=== PATIENT | female | born 1960 | race Caucasian/White ===

== ENCOUNTER 2021-04-21 10:48 | Outpatient (REF) | payer MEDICARE, MEDICAID, SELFPAY ==
--- NOTE | ~2021-04-21 | MM_ITS ---
EXAMINATION: BONE DENSITOMETRY CLINICAL INDICATION: Asymptomatic menopausal state. COMPARISON: This is the patient's baseline examination. TECHNIQUE: Using a [employer] DXA System (software version: 13.1) manufactured by [employer], dual-energy x-ray absorptiometry was performed of the lumbar spine and left hip. The images are of good technical quality. Summary results are attached. FINDINGS: AP SPINE L1-L4: BMD 1.214 g/cm2, Z-score 0.3, T-score 0.3, normal. LEFT FEMUR, NECK: BMD 1.050 g/cm2, Z-score 0.6, T-score 0.1, normal. LEFT FEMUR, TOTAL: BMD 1.124 g/cm2, Z-score 1.0, T-score 0.9, normal. IDENTIFIED RISK FACTORS: Menopause. HISTORY OF FRACTURE: None listed. MEDICATIONS: Calcium supplements or multivitamin, vitamin D, ERT/SERMS. MM/XR DEXA axial skeleton IMPRESSION: 1. DIAGNOSIS: Normal bone density based on the lowest T-score value of 0.1 in the femoral neck applying World Health Organization criteria. 2. 10-YEAR FRACTURE RISK PREDICTION, FRAX: Major osteoporotic fracture (clinical spine, forearm, hip or shoulder) 5.4%. Hip fracture 0.1%. 3. Treatment Recommendations: NOF guidelines recommend consideration for treatment in postmenopausal women and men age 50 and older presenting with the following: -A hip or vertebral (clinical or morphometric) fracture. -T-score less than or equal to -2.5 at the femoral neck or spine after appropriate evaluation to exclude secondary causes. -Low bone mass at the hip or spine and a 10-year fracture probability by FRAX of greater than or equal to 3% for hip fracture or greater than or equal to 20% for major osteoporotic fracture based on the [place] adapted WHO algorithm. 4. Other Recommendations: All treatment decisions require clinical judgment and consideration of individual patient factors, including patient preferences, comorbidities, previous drug use, risk factors not captured in the FRAX model (e.g. frailty, falls, vitamin D deficiency, increased bone turnover, interval significant decline in bone density) and possible under or overestimation of fracture risk by FRAX. FUTURE SCAN RECOMMENDATION: People with diagnosed cases of osteoporosis or at high risk for fracture should have regular bone mineral density tests. For patients eligible for Medicare, routine testing is allowed once every 2 years. The testing frequency can be increased to one year for patients who have rapidly progressing disease, those who are receiving or discontinuing medical therapy to restore bone mass, or have additional risk factors.
== END 2021-04-21 10:49 | disposition home or self-care (01) ==
LOC: HO.MAMMO 10:48
PROVIDERS: PCP Nurse Practitioner Family; Visit Provider Nurse Practitioner Family
DX: Z13.820 Encounter for screening for osteoporosis (principal); Z78.0 Asymptomatic menopausal state; Z79.899 Other long term (current) drug therapy
CPT/HCPCS: 77080

== ENCOUNTER 2023-01-11 10:12 | Outpatient (REF) | payer MEDICARE, MEDICAID, SELFPAY ==
[2023-01-11 11:09] LABS: MANUAL DIFF FLAG NO
[2023-01-11 11:25] LABS: Appearance Urine Clear; Color Urine Yellow; Glucose Urine UA >=1000 mg/dL (Negative); Leukocyte Esterase Urine Trace (Negative); Nitrite Urine Negative (Negative); PH 5.5 (5.0-9.0); UMIC TRIGGER UACC YES; Urine Blood Negative (Negative); Urine Ketones Negative (Negative); Urine Protein Negative (Neg-Trace)
[2023-01-11 11:27] LABS: Basophils Percent Auto 0.6 % (0-2); Eosinophils Absolute Auto 0.3 X10*3/uL (0.0-0.4); Eosinophils Percent Auto 7.2 % (0-4); Hematocrit 40.7 % (37.0-47.0); Hemoglobin 13.3 g/dl (12.0-16.0); Imm Gran Abs Auto 0.02 X10*3/uL (0.00-0.03); Imm Gran Pct Auto 0.4 % (0.0-0.4); Lymphocytes Absolute Auto 1.5 X10*3/uL (1.2-4.9); Lymphocytes Percent Auto 31.4 % (20-40); Mean Corpuscular HGB Conc 32.7 g/dl (31.0-35.0); Mean Corpuscular Hemoglobin 29.7 pg (27.0-33.0); Mean Corpuscular Volume 90.8 fL (80.0-98.0); Mean Platelet Volume 8.9 fL (9.4-12.3); Monocytes Absolute Auto 0.3 X10*3/uL (0.1-1.2); Monocytes Percent Auto 6.6 % (2-11); Neutrophils Absolute Auto 2.5 x10*3/uL (2.0-8.3); Neutrophils Percent Auto 53.8 % (45-73); Platelet Count 291 X10*3/uL (160-400); Red Blood Count 4.48 X10*6/uL (4.20-5.50); Red Cell Distribution Width 13.7 % (11.0-16.0); White Blood Count 4.7 X10*3/uL (4.8-10.8)
[2023-01-11 11:34] LABS: Bacteria Urine None Seen (None Seen); Hyaline Casts Urine 0-2 /LPF (0-2); RBC Urine 0-2 /HPF (0-2); Squamous Epithelial Cell Urine 0-2 /HPF (0-2); WBC Urine 0-5 /HPF (0-5)
[2023-01-11 12:56] LABS: Alanine Aminotransferase 18 U/L (0-31); Albumin Level 4.1 g/dL (3.5-5.0); Alkaline Phosphatase 87 U/L (39-117); Anion Gap 15 (12-20); Aspartate Amino Transferase 13 U/L (5-31); Bilirubin Total 0.6 mg/dL (0.0-1.0); Blood Urea Nitrogen 15 mg/dL (9-16); Calcium 9.9 mg/dL (8.4-10.2); Carbon Dioxide 25 mmol/L (22-29); Chloride 104 mmol/L (96-108); Cholesterol 148 mg/dL; Estimated Glomerular Filt Rate 57; Glucose Fasting 155 mg/dL (60-99); HDL Cholesterol 51 mg/dL; LDL Cholesterol Calculated 78 mg/dl; Potassium 4.4 mmol/L (3.3-5.1); Sodium 140 mmol/L (135-145); Total Protein 7.3 g/dL (6.5-8.0); Triglycerides 95 mg/dL
[2023-01-11 13:00] LABS: TSH reflex Free T4 1.22 uIU/mL (0.32-4.0)
== END 2023-01-11 10:13 | disposition home or self-care (01) ==
LOC: HO.HMGCLDS 10:12
PROVIDERS: PCP Nurse Practitioner Family; Visit Provider Nurse Practitioner Family
DX: E11.9 Type 2 diabetes mellitus without complications (principal); N12 Tubulo-interstitial nephritis, not specified as acute or chronic
CPT/HCPCS: 36415; 80053; 80061; 81001; 82043; 83036; 84443; 85025

== ENCOUNTER 2023-04-20 13:43 | Outpatient (AMB) | payer MEDICARE, MEDICAID, SELFPAY ==
--- NOTE | 2023-04-20 13:57 | A.OFFPC_ITS ---
Vital Signs 04/20/23 13:58 Height 5 ft 9.5 in Weight 241 lb BMI 35.1 BP 118/64 Blood Pressure Location Rt brachial Position Sitting Pulse 90 Pulse Source Pulse Oximeter Pulse Oximetry (%) 99 Oxygen Delivery Method Room Air Intake Visit Reasons: 2 1/2 month follow up newly DM Allergies penicillin V Allergy (Unknown, Verified 04/20/23 14:01) swelling Penicillins [PENICILLINS] Allergy (Unknown, Unverified 04/20/23 14:01) SWELLING From NOVOCAIN Allergy (Unknown, Uncoded 04/20/23 14:01) SWELLING Novocain Allergy (Unknown, Uncoded 04/20/23 14:01) swelling Medication List - Last Reconciled 04/20/23 by BETHANY Cid-NILAY ascorbic acid (vitamin C) PO .once a day; 90 days atorvastatin 10 mg PO DAILY 90 days blood sugar diagnostic (FreeStyle Lite Strips) 1 strip miscellaneous DAILY blood-glucose meter (FreeStyle Lite Meter kit) As directed flu vacc [id number](65yr up)-PF 0.7 mL IM ONCE 99 days lancets (FreeStyle Lancets) 1 gauge topical DAILY 30 days lisinopril 5 mg PO DAILY metformin 1,000 mg PO BID OneTouch Ultra Test (blood sugar diagnostic) TID testing NS OneTouch Ultra2 Meter (blood-glucose meter) TID testing NS OneTouch UltraSoft 2 Lancet (lancets) TID testing NS Shower Chair daily shower use tirzepatide (Mounjaro) 2.5 mg subcut QWEEK trazodone 150 mg PO BEDTIME Tobacco use date assessed: 04/20/23 Dental Screening Dental Screen Date: 04/20/23 Did you have a dental visit in the last 12 months?: Yes Did you have a dental problem in the last 6 months where you did not have access to dental care?: No Was dental information given to patient?: Patient has dentist HPI 2 1/2 month follow up newly DM HPI Details Pt is a diabetic, on an DEMETRIS and a statin. Last A1C was 6.8, microalbumin is up to date. Denies polyuria, polydipsia, and neuropathy. Pt denies any signs and symptoms of hypoglycemia and does know how to correct it. HTN: Blood pressure is stable, managed with lisinopril 5mg. Denies chest pain, shortness of breath, headache, dizziness, and blurred vision. Pt sees endo. She is working on her diet and has lost 68 pounds. reports feeling great [facility] Medical History (Updated 12/25/22 @ 10:20 by LYLA Cid) Obstruction of ureteropelvic junction (UPJ) due to stone Pyelonephritis Social History Housing: House Patient Tobacco Use Status: Never used Tobacco e-Cigarette/Vaping Use: Never Used Second Hand Smoke Exposure: No Current occupational status: disabled Cognitive needs: No Hearing needs: No Vision needs: No Review of Systems Const Reports as per HPI Physical exam (Primary Care) Vital Signs: Last Vital Signs Pulse 90 04/20/23 13:58 BP 118/64 04/20/23 13:58 Pulse Ox 99 04/20/23 13:58 Oxygen Delivery Method Room Air 04/20/23 13:58 BMI result Body Mass Index 35.1 Tobacco/Smoking Status: Tobacco use Status Tobacco use date assessed 04/20/23 04/20/23 14:07 Patient Tobacco Use Status Never used Tobacco 04/20/23 13:58 e-Cigarette/Vaping Use Never Used 04/20/23 13:58 Const General: cooperative Nutritional Appearance: obese Orientation/consciousness: patient oriented x3 Resp Effort & Inspection: normal respiratory effort Auscultation: clear to auscultation bilaterally Cardio Rate: regular rate Rhythm: regular rhythm Heart sounds: S1 normal heart sound present and S2 normal heart sound present Neuro General: patient oriented x3 Extrem Other: bilat feet: + sensation with use of monofilament, feet intact without lesions Psych Appearance: grossly normal Mental Status: mental status grossly normal Speech and movement: Normal speech and movement present Affect: normal affect Attitude: cooperative Thought process: Normal thought process present Thought content: Normal thought content present Insight: Good insight present (Psych) Judgement: Good judgement present (Psych) Assessment and Plan Assessment & Plan (1) HTN (hypertension): Code(s): I10 - Essential (primary) hypertension (2) Diabetes: Code(s): E11.9 - Type 2 diabetes mellitus without complications Plan The patient agreed to the use of a medical research scientist for this encounter. Scribed for LYLA Cali by Swetha Kyle, medical research scientist, on 04/20/2023 at 14:15 EST Medications: Changed From trazodone 100 mg PO BEDTIME 90 days 90 tabs 2RF To trazodone 150 mg PO BEDTIME Coding Level of Care Code Est Pt Level 3 (74330) Diagnoses HTN (hypertension) I10 Diabetes E11.9
[2023-04-20 13:58] VITALS: BP 118/64; PULSE 90; O2SAT 99; BMI 35.1
== END 2023-04-20 14:41 | disposition home or self-care (01) ==
PROVIDERS: PCP Nurse Practitioner Family; Visit Provider Nurse Practitioner Family
DX: I10 Essential (primary) hypertension (principal); E11.9 Type 2 diabetes mellitus without complications
CPT/HCPCS: 99213

== ENCOUNTER 2023-10-24 15:33 | Outpatient (AMB) | payer MEDICARE, MEDICAID, SELFPAY ==
--- NOTE | 2023-10-24 15:39 | MHC.PC.OV ---
Vital Signs 10/24/23 15:44 Height 5 ft 9.5 in Weight 223 lb BMI 32.5 BP 108/62 Blood Pressure Location Rt brachial Position Sitting Pulse 78 Pulse Source Pulse Oximeter Pulse Oximetry (%) 98 Oxygen Delivery Method Room Air Intake Visit Reasons: Annual Physical Intake Note: Patient here for physical exam. pt has f/u appt with Endo in 2 weeks. Mammo: 2022 Pap: 2023 due back in 2yrs. Bone dens: 2020 Allergies penicillin V Allergy (Unknown, Verified 10/24/23 15:46) swelling Penicillins [PENICILLINS] Allergy (Unknown, Unverified 10/24/23 15:46) SWELLING From NOVOCAIN Allergy (Unknown, Uncoded 10/24/23 15:46) SWELLING Novocain Allergy (Unknown, Uncoded 10/24/23 15:46) swelling Medication List - Last Reconciled 10/24/23 by Duke Rey, [employer] ascorbic acid (vitamin C) PO .once a day; 90 days atorvastatin 10 mg PO DAILY 90 days blood sugar diagnostic (FreeStyle Lite Strips) 1 strip miscellaneous DAILY blood-glucose meter (FreeStyle Lite Meter kit) As directed flu vacc [id number](65yr up)-PF 0.7 mL IM ONCE 99 days lancets (FreeStyle Lancets) 1 gauge topical DAILY 30 days lisinopril 5 mg PO DAILY metformin 1,000 mg PO BID OneTouch Ultra Test (blood sugar diagnostic) TID testing NS OneTouch Ultra2 Meter (blood-glucose meter) TID testing NS OneTouch UltraSoft 2 Lancet (lancets) TID testing NS Shower Chair daily shower use tirzepatide (Mounjaro) 5 mg subcut QWEEK trazodone 100 mg PO BEDTIME PRN Tobacco use date assessed: 10/24/23 Dental Screening Dental Screen Date: 10/24/23 Did you have a dental visit in the last 12 months?: Yes Did you have a dental problem in the last 6 months where you did not have access to dental care?: No Was dental information given to patient?: Patient has dentist HPI Annual Physical HPI Details Pt is here for a PE. Will order labs. 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 Mammo is up to date. Colon screen is up to date. Pt is a diabetic, sees endo. Pt c/o increased insomnia. She is currently taking trazodone 100mg. Will increase this to 150mg. Pt has a papular lesion to her right cheondoism. Will refer to derm. [facility] Medical History (Updated 10/24/23 @ 16:24 by Duke Rey, [facility]) Obstruction of ureteropelvic junction (UPJ) due to stone Pyelonephritis Surgical History (Updated 10/24/23 @ 15:49 by Zuleyka Keen, [facility]) Hx of left knee surgery Social History Housing: House Patient Tobacco Use Status: Never used Tobacco e-Cigarette/Vaping Use: Never Used Second Hand Smoke Exposure: No Current occupational status: disabled Cognitive needs: No Hearing needs: No Vision needs: No Questionnaire PHQ-9 Over the last 2 weeks, how often have you been bothered by any of the following problems? 1. Little interest or pleasure in doing things: not at all 2. Feeling down, depressed, or hopeless: not at all 3. Trouble falling or staying asleep, or sleeping too much: not at all 4. Feeling tired or having little energy: not at all 5. Poor appetite or overeating: not at all 6. Feeling bad about yourself - or that you are a failure or have let yourself or your family down: not at all 7. Trouble concentrating on things, such as reading the newspaper or watching television: not at all 8. Moving or speaking so slowly that other people could have noticed. Or the opposite - being so fidgety or restless that you have been moving around a lot more than usual: not at all 9. Thoughts that you would be better off or of hurting yourself in some way: not at all Total score: 0 Depression Screening Interpretation: Negative Depression Screening Done: Yes 65237 - PHQ-9 Billing: Yes Source: Developed by Drs. Avel Melton, Tresa White, Arsh Corral and colleagues, with an educational christiano from [employer]. Thrive Questionnaire Date Thrive assessed: 10/24/23 I am a: Patient What is your living situation today?: I have a steady place to live Within the past 12 months, did the food you bought not last and you didn't have the money to get more?: Never true Within the past 12 months, did you worry whether your food would run out before you got money to buy more?: Never true Do you have trouble paying for medicines?: No Do you have trouble getting transportation to medical appointments?: No Do you have trouble paying your heating and electricity bill?: No Do you have trouble taking care of your child, family member or friend?: No Do you have trouble with day-to-day activities such as bathing, preparing meals, shopping, managing finances, etc.?: No Are you currently unemployed and looking for a job?: No Are you interested in more education?: No Currently or been in a relationship where the following occur: I choose not to answer this question THRIVE Score: 0 AUDIT C Alcohol Use Questionnaire (AUDIT-C) 1. How often do you have a drink containing alcohol?: Never 3. How often do you have six or more drinks on one occasion?: Never Total Score: 0 Score Reviewed/Action Taken: No ALLEN-7 AMB Questionnaire ALLEN-7 Date ALLEN - 7 assessed: 10/24/23 Feeling nervous, anxious, or on edge: 0 = Not at all Not being able to stop or control worryin = Not at all Worrying too much about different things: 0 = Not at all Trouble relaxin = Not at all Being so restless that it is hard to sit still: 0 = Not at all Becoming easily annoyed or irritable: 0 = Not at all Feeling afraid as if something awful might happen: 0 = Not at all Total ALLEN-7 score (0-4 normal; 5-9 mild; 10-14 moderate; 15-21 severe): 0 Source: Developed by Drs. Avel Melton, Tresa White, Arsh Corral and colleagues, with an educational christiano from [employer]. ALLEN-7 Assessment Billing ALLEN-7 Assessment Tool: ALLEN-7 Assessment 25262 Review of Systems Const Denies chills and Denies fever(s) Eyes Denies blurry vision ENT Denies vertigo, Denies dizziness and Denies sore throat Card Denies chest pain at rest, Denies chest pain with activity, Denies diaphoresis, Denies dyspnea and Denies dyspnea on exertion Resp Denies cough, Denies dyspnea, Denies dyspnea on exertion and Denies wheezing GI Denies abdominal pain, Denies melena, Denies hematochezia, Denies constipation, Reports diarrhea (intermittent) and Denies loose stools Denies hematuria Musc Denies numbness and Denies tingling Skin/Breast Denies lesions Neuro Denies vertigo, Denies dizziness, Denies numbness and Denies tingling Psych Denies anxiety, Denies depression, Denies homicidal ideation, Denies suicidal ideation and Denies other (substance abuse) Aller/Immun Denies wheezing Physical exam (Primary Care) Vital Signs: Last Vital Signs Pulse 78 10/24/23 15:44 BP 108/62 10/24/23 15:44 Pulse Ox 98 10/24/23 15:44 Oxygen Delivery Method Room Air 10/24/23 15:44 BMI result Body Mass Index 32.5 Tobacco/Smoking Status: Tobacco use Status Tobacco use date assessed 10/24/23 10/24/23 15:51 Patient Tobacco Use Status Never used Tobacco 10/24/23 15:39 e-Cigarette/Vaping Use Never Used 10/24/23 15:39 PHQ-9: PHQ-9 Score PHQ-9: Total score 0 10/24/23 15:58 Depression Screening Interpretation: Negative Thrive Assessment: Date of Thrive Assessment Date Thrive assessed 10/24/23 10/24/23 15:58 Currently or been in a relationship where the following occur: I choose not to answer this question Const General: cooperative Nutritional Appearance: well nourished Orientation/consciousness: patient oriented x3 HENMT Head: Yes normal to inspection, Yes normocephalic and Yes atraumatic Ears: TM's normal bilaterally Eyes General: appearance normal, both eyes and all related structures Alignment and Position: alignment normal and position normal Neck Neck: Yes normal visual inspection and Yes no lymphadenopathy Thyroid: Thyroid normal Resp Effort & Inspection: normal respiratory effort Auscultation: clear to auscultation bilaterally Cardio Rate: regular rate Rhythm: regular rhythm Heart sounds: S1 normal heart sound present, S2 normal heart sound present and no murmurs GI Palpation (GI): Soft to palpation and nontender Auscultation: normal bowel sounds Skin Other: right cheondoism with papular, darker colored lesion Rashes: no rashes Neuro General: patient oriented x3, moves all extremities, no focal motor deficits and deep tendon reflexes 2+ bilaterally Romberg Test: Negative Psych Appearance: grossly normal Mental Status: mental status grossly normal Speech and movement: Normal speech and movement present Affect: normal affect Attitude: cooperative Thought process: Normal thought process present Thought content: Normal thought content present Insight: Good insight present (Psych) Judgement: Good judgement present (Psych) Assessment and Plan Assessment & Plan (1) Skin lesion: Code(s): L98.9 - Disorder of the skin and subcutaneous tissue, unspecified Plan: referring to derm (2) HTN (hypertension): Code(s): I10 - Essential (primary) hypertension Plan: stable (3) Vitamin D deficiency: Code(s): E55.9 - Vitamin D deficiency, unspecified Plan: lab ordered (4) Postmenopausal: Code(s): Z78.0 - Asymptomatic menopausal state Plan The patient agreed to the use of a pediatric medical assistant for this encounter. Scribed for LYLA Cali by Swetha Wright pediatric medical assistant, on 10/24/2023 at 16:10 EST. Orders: Orders UA CC w/rflx Micro + Cult Today I10 - Essential (primary) hypertension Lipid Panel Today I10 - Essential (primary) hypertension Vitamin D 25-OH Total Today E55.9 - Vitamin D deficiency, unspecified XR DEXA axial skeleton Today E55.9 - Vitamin D deficiency, unspecified, Z78.0 - Asymptomatic menopausal state Complete Blood Count Auto Diff Today I10 - Essential (primary) hypertension Comprehensive Iva. Panel Fast Today I10 - Essential (primary) hypertension TSH reflex Free T4 Today I10 - Essential (primary) hypertension Referrals Dermatology Referral L98.9 - Disorder of the skin and subcutaneous tissue, unspecified Medications: Changed From trazodone 100 mg PO BEDTIME PRN insomnia To trazodone 150 mg PO BEDTIME 90 days PRN 90 tabs 0RF insomnia Coding Level of Care Code Est Pt Prev Care 40-64y(18085) Diagnoses Skin lesion L98.9 HTN (hypertension) I10 Vitamin D deficiency E55.9 Postmenopausal Z78.0 Additional Codes ALLEN-7 Assessment Billing - ALLEN-7 Assessment Tool: ALLEN-7 Assessment [id number] ([id number])
[2023-10-24 15:44] VITALS: BP 108/62; PULSE 78; O2SAT 98; BMI 32.5
== END 2023-10-24 16:32 | disposition home or self-care (01) ==
PROVIDERS: PCP Nurse Practitioner Family; Visit Provider Nurse Practitioner Family
DX: Z00.00 Encounter for general adult medical examination without abnormal findings (principal); L98.9 Disorder of the skin and subcutaneous tissue, unspecified; I10 Essential (primary) hypertension; E55.9 Vitamin D deficiency, unspecified; Z78.0 Asymptomatic menopausal state
CPT/HCPCS: 99396

== ENCOUNTER 2023-11-09 12:33 | Outpatient (REF) | payer OTHER, SELFPAY ==
--- NOTE | ~2023-11-09 | MM_ITS ---
EXAMINATION: BONE DENSITOMETRY CLINICAL INDICATION: Vitamin D deficiency, unspecified. COMPARISON: Baseline BD dated 04/21/2021. TECHNIQUE: Using a [employer] DXA System (software version: 13.1) manufactured by [employer], dual-energy x-ray absorptiometry was performed of the lumbar spine and left hip. The images are of good technical quality. Summary results are attached. FINDINGS: AP SPINE L1-L4: Current: BMD 1.122 g/cm2, Z-score -0.2, T-score -0.5, normal, 7.6% decrease from baseline (<5% change is not significant). Baseline: BMD 1.214 g/cm2. LEFT FEMUR, NECK: Current: BMD 0.915 g/cm2, Z-score -0.3, T-score -0.9, normal. Baseline: BMD 1.050 g/cm2. LEFT FEMUR, TOTAL: Current: BMD 0.992 g/cm2, Z-score 0.1, T-score -0.1, normal, 11.7% decrease from baseline (<5% change is not significant). Baseline: BMD 1.124 g/cm2. IDENTIFIED RISK FACTORS: Menopause. HISTORY OF FRACTURE: None listed. MEDICATIONS: None listed. MM/XR DEXA axial skeleton IMPRESSION: 1. DIAGNOSIS: Normal bone density based on the lowest T-score value of -0.9 in the femoral neck applying World Health Organization criteria. 2. 10-YEAR FRACTURE RISK PREDICTION, FRAX: According to the guidelines, FRAX calculation should only be performed on patients in the osteopenia bone density category.?Therefore, FRAX was not performed on this patient.? 3. Treatment Recommendations: NOF guidelines recommend consideration for treatment in postmenopausal women and men age 50 and older presenting with the following: -A hip or vertebral (clinical or morphometric) fracture. -T-score less than or equal to -2.5 at the femoral neck or spine after appropriate evaluation to exclude secondary causes. -Low bone mass at the hip or spine and a 10-year fracture probability by FRAX of greater than or equal to 3% for hip fracture or greater than or equal to 20% for major osteoporotic fracture based on the [place] adapted WHO algorithm. 4. Other Recommendations: All treatment decisions require clinical judgment and consideration of individual patient factors, including patient preferences, comorbidities, previous drug use, risk factors not captured in the FRAX model (e.g. frailty, falls, vitamin D deficiency, increased bone turnover, interval significant decline in bone density) and possible under or overestimation of fracture risk by FRAX. FUTURE SCAN RECOMMENDATION: People with diagnosed cases of osteoporosis or at high risk for fracture should have regular bone mineral density tests. For patients eligible for Medicare, routine testing is allowed once every 2 years. The testing frequency can be increased to one year for patients who have rapidly progressing disease, those who are receiving or discontinuing medical therapy to restore bone mass, or have additional risk factors.
== END 2023-11-09 12:34 | disposition home or self-care (01) ==
LOC: HO.MAMMO 12:33
PROVIDERS: PCP Nurse Practitioner Family; Visit Provider Nurse Practitioner Family
DX: Z13.820 Encounter for screening for osteoporosis (principal); Z78.0 Asymptomatic menopausal state; E55.9 Vitamin D deficiency, unspecified
CPT/HCPCS: 77080

== ENCOUNTER 2024-01-16 10:54 | Outpatient (REF) | payer OTHER, SELFPAY ==
[2024-01-16 12:58] LABS: MANUAL DIFF FLAG NO
[2024-01-16 13:04] LABS: Basophils Percent Auto 0.5 % (0-2); Eosinophils Absolute Auto 0.2 X10*3/uL (0.0-0.4); Eosinophils Percent Auto 5.3 % (0-4); Hematocrit 41.5 % (37.0-47.0); Hemoglobin 13.7 g/dl (12.0-16.0); Imm Gran Abs Auto 0.01 X10*3/uL (0.00-0.03); Imm Gran Pct Auto 0.2 % (0.0-0.4); Lymphocytes Absolute Auto 1.5 X10*3/uL (1.2-4.9); Lymphocytes Percent Auto 33.6 % (20-40); Mean Corpuscular Hemoglobin 29.9 pg (27.0-33.0); Mean Corpuscular Volume 90.6 fL (80.0-98.0); Mean Platelet Volume 8.8 fL (9.4-12.3); Monocytes Absolute Auto 0.3 X10*3/uL (0.1-1.2); Monocytes Percent Auto 6.6 % (2-11); Neutrophils Absolute Auto 2.4 x10*3/uL (2.0-8.3); Neutrophils Percent Auto 53.8 % (45-73); Platelet Count 208 X10*3/uL (160-400); Red Blood Count 4.58 X10*6/uL (4.20-5.50); Red Cell Distribution Width 13.2 % (11.0-16.0); White Blood Count 4.4 X10*3/uL (4.8-10.8)
[2024-01-16 13:11] LABS: Appearance Urine Clear; Color Urine Yellow; Glucose Urine UA Negative (Negative); Leukocyte Esterase Urine Moderate (2+) (Negative); Nitrite Urine Negative (Negative); PH 5.5 (5.0-9.0); Specific Gravity - Urine 1.015 (1.005-1.025); UMIC TRIGGER UACC YES; Urine Blood Negative (Negative); Urine Ketones Negative (Negative); Urine Protein Negative (Neg-Trace)
[2024-01-16 13:14] LABS: Bacteria Urine None Seen (None Seen); Hyaline Casts Urine 0-2 /LPF (0-2); RBC Urine 0-2 /HPF (0-2); Squamous Epithelial Cell Urine 0-2 /HPF (0-2); UACC Culture Trigger YES; WBC Urine 21-50 /HPF (0-5)
[2024-01-16 13:27] LABS: Alanine Aminotransferase 20 U/L (0-31); Alkaline Phosphatase 78 U/L (39-117); Anion Gap 10 (12-20); Aspartate Amino Transferase 15 U/L (5-31); Bilirubin Total 0.5 mg/dL (0.0-1.0); Blood Urea Nitrogen 15 mg/dL (9-16); Calcium 9.5 mg/dL (8.4-10.2); Carbon Dioxide 27 mmol/L (22-29); Chloride 107 mmol/L (96-108); Cholesterol 138 mg/dL (<200); Estimated Glomerular Filt Rate > 60; Glucose Fasting 119 mg/dL (60-99); HDL Cholesterol 56 mg/dL (>40); LDL Cholesterol Calculated 64 mg/dL (<100); Potassium 4.1 mmol/L (3.3-5.1); Sodium 140 mmol/L (135-145); Total Protein 6.7 g/dL (6.5-8.0); Triglycerides 94 mg/dL (<150)
[2024-01-16 13:43] LABS: TSH reflex Free T4 0.87 uIU/mL (0.32-4.0); Vitamin D 25-OH Total 51.8 ng/mL (>30)
== END 2024-01-16 10:55 | disposition home or self-care (01) ==
LOC: HO.HMGCLDS 10:54
PROVIDERS: PCP Nurse Practitioner Family; Visit Provider Nurse Practitioner Family
DX: I10 Essential (primary) hypertension (principal); R30.0 Dysuria; E55.9 Vitamin D deficiency, unspecified
CPT/HCPCS: 36415; 80053; 80061; 81001; 81003; 82306; 84443; 85025; 87086

== ENCOUNTER 2024-02-29 12:35 | Emergency (ER) | payer OTHER, SELFPAY ==
--- NOTE | ~2024-02-29 | CT_ITS ---
EXAMINATION: CT ABDOMEN AND PELVIS WITH CONTRAST CLINICAL INFORMATION: Lower abdominal pain COMPARISON: None available. TECHNIQUE: Multidetector volumetric images were obtained from the superior aspect of the liver through the pubic symphysis following administration 85 mL of Omnipaque 350 intravenous contrast. Sagittal and coronal reformatted images were obtained on the technologist's workstation. Oral contrast: Yes This CT examination was performed using dose optimization techniques as appropriate, variously including the following: *Automated exposure control *Adjustment of mA and/or kV according to patient size (this includes techniques or standardized protocols for targeted exams where dose is matched to indication/reason for exam; i.e. extremities or head) *Use of iterative reconstruction technique DLP: 954 mGy-cm FINDINGS: LUNG BASES: The visualized lung bases are unremarkable. LIVER, GALLBLADDER, AND BILIARY TREE: The liver is normal in size, shape, and attenuation. No focal hepatic lesion or biliary ductal dilatation is present. The gallbladder is unremarkable with no evidence of radiopaque gallstones, gallbladder wall thickening, or obvious pericholecystic inflammatory changes. PANCREAS: Unremarkable. SPLEEN: Unremarkable. ADRENAL GLANDS: Unremarkable. KIDNEYS AND URETERS: There is a 4 mm calcified stone in the in the distal right ureter. The more proximal right ureter is mildly prominent in size. There is minimal right hydronephrosis. No perinephric stranding seen. There is a punctate calcification in the mid left ureter. No significant proximal hydronephrosis or hydroureter seen. Left kidney demonstrates normal enhancement without perinephric stranding. BLADDER: Unremarkable. GASTROINTESTINAL TRACT: The small and large bowel are unremarkable. The appendix is not visualized. No secondary signs of acute appendicitis. No evidence of intussusception ABDOMINAL WALL: No significant hernia is appreciated. LYMPH NODES: Normal. VASCULAR: Unremarkable. PELVIC VISCERA: Uterus appears normal. There is a simple fluid density cyst is seen within the left adnexa measuring approximately 5.9 x 4.6 cm . Left ovary is unremarkable OSSEOUS STRUCTURES: Unremarkable. CT/CT abdomen pelvis w IV con IMPRESSION: 1. 4 mm calcified stone in the distal right ureter with minimal right hydronephrosis. 2. Punctate calcification in the mid left ureter without significant proximal hydronephrosis or hydroureter. 3. Left adnexal cyst measuring 5.9 cm. Findings are concerning for low-grade cystic neoplasm. Recommend either a gynecological consult and followup ultrasonography in 3-6 months, or unenhanced and IV contrast enhanced MRI of the pelvis for improved characterization. Electronically signed by: Dinesh Norris MD 02/29/2024 09:15 PM EDT RP
[2024-02-29 13:03] VITALS: BP 116/65; PULSE 75; RESP 18; TEMP 36.9; O2SAT 96; BMI 34.4
--- NOTE | 2024-02-29 13:09 | ED.ABDPAIN ---
HPI - Abdominal Pain General Chief Complaint: Abdominal Pain Stated Complaint: Sent by for CAT scan, abd pain Time Seen by Provider: 02/29/24 16:01 Source: patient Mode of arrival: ambulatory Limitations: no limitations History of Present Illness ED Provider: DR. Fabian HPI narrative: [age] year female walked into the emergency department for evaluation of lower abdominal pain that started a week ago, patient was seen at [facility] last week while she was on vacation at [facility] had CT of the abdomen and pelvis revealed obstructing right kidney stone that the patient think with past also patient was told that she intussusception with twisting of bowel patient was discharged from the hospital there without any intervention, returned today for increased lower abdominal pain, no nausea, no vomiting, no fever, chills, no loss of appetite, last bowel movement was 2 days ago positive passing flatus, never had intra-abdominal surgery, no dysuria, no frequency urination, no hematuria. Patient's record was requested from [facility]. Related Data Home Medications ?Medication ?Instructions ?Recorded ?Confirmed metformin 500 mg tablet 1,000 mg PO BID 01/24/23 10/24/23 tirzepatide 2.5 mg/0.5 mL 5 mg subcut QWEEK 10/24/23 10/24/23 subcutaneous pen injector (Tena) Previous Rx's ?Medication ?Instructions ?Recorded blood-glucose meter (FreeStyle #1 ea 09/02/20 Lite Meter kit) Shower Chair #1 ea 12/21/20 flu vacc [id number](65yr up)-PF 240 0.7 ml IM ONCE 99 days #0.7 mL 03/18/21 mcg/0.7 mL intramuscular syringe blood sugar diagnostic (FreeStyle 1 strip miscellaneous DAILY for 10/27/21 Lite Strips) diabetes mellitus #100 strips lancets 28 gauge (FreeStyle 1 gauge topical DAILY 30 days #100 10/27/21 Lancets) caps ascorbic acid (vitamin C) 500 mg See Rx Instructions PO .once a day 05/19/22 capsule 90 days #90 caps OneTouch Ultra Test (blood sugar #100 ea 12/14/22 diagnostic) OneTouch Ultra2 Meter #1 ea 12/14/22 (blood-glucose meter) OneTouch UltraSoft 2 Lancet 30 #100 ea 12/14/22 gauge (lancets) atorvastatin 10 mg tablet 10 mg PO DAILY 90 days #90 tabs 09/28/23 lisinopril 5 mg tablet 5 mg PO DAILY #90 tabs 09/28/23 docusate sodium 100 mg capsule 100 mg PO DAILY PRN constipation 11/07/23 90 days #90 caps trazodone 150 mg tablet 150 mg PO BEDTIME PRN insomnia 90 01/15/24 days #90 tabs diclofenac sodium 1 % topical gel 4 g topical QID #100 grams 02/19/24 (Voltaren Arthritis Pain) oxycodone 5 mg tablet 5 mg PO Q8H PRN pain #10 tabs 02/29/24 prednisone 20 mg tablet 20 mg PO BID #10 tabs 02/29/24 tamsulosin 0.4 mg capsule (Flomax) 0.4 mg PO DAILY #7 caps 02/29/24 Allergies Allergy/AdvReac Type Severity Reaction Status Date / Time penicillin V Allergy Unknown swelling Verified 02/29/24 13:05 Penicillins [PENICILLINS] Allergy Unknown SWELLING Verified 02/29/24 13:05 From NOVOCAIN Allergy Unknown SWELLING Uncoded 02/29/24 13:05 Novocain Allergy Unknown swelling Uncoded 02/29/24 13:05 Review of Systems Review of Systems All other systems are reviewed and are negative Constitutional: Reports as per HPI and Reports no additional constitutional complaints Eyes: Reports as per HPI and Reports no additional eye complaints Reports system reviewed and no additional complaints, except as documented Cardiovascular: Reports as per HPI and Reports no additional cardiovascular complaints Respiratory: Reports as per HPI and Reports no additional respiratory complaints Gastrointestinal: Reports as per HPI and Reports no additional gastrointestinal complaints Genitourinary: Reports no additional female genitourinary complaints Musculoskeletal: Reports no additional musculoskeletal complaints Skin/Breast: Reports system reviewed and no additional complaints, except as docu Psychiatric: Reports no additional psychiatric complaints Endocrine: Reports no additional endocrine complaints Hematologic/Lymphatic: Reports no additional hematologic/lymphatic complaints Allergic/Immunologic: Reports no additional allergic/immunologic complaints Reports system reviewed and no additional complaints, except as documented and Reports Abnormal speech present [facility] Past Medical History Medical History Obstruction of ureteropelvic junction (UPJ) due to stone Pyelonephritis Surgical History Hx of left knee surgery Social History Social History Housing: House Patient Tobacco Use Status: Never used Tobacco Smoked in Last 30 Days: No e-Cigarette/Vaping Use: Never Used Second Hand Smoke Exposure: No Use of substances other than those prescribed or required for medical reasons: No Advance Directives: No Advance Directives Information Provided: No Do you have a plan to hurt others: No Plan Current occupational status: disabled Cognitive needs: No Hearing needs: No Vision needs: No Physical Exam ED Vital Signs: Vital Signs - 24 hr 02/29/24 13:03 02/29/24 16:31 02/29/24 18:07 Temperature 98.5 F 97.9 F 98.4 F Pulse Rate 75 60 58 Respiratory Rate 18 16 18 Blood Pressure 116/65 130/73 124/62 Pulse Oximetry 96 100 97 Oxygen Delivery Method Room Air Room Air Room Air 02/29/24 19:37 02/29/24 22:33 Temperature 98.4 F 97.9 F Pulse Rate 76 68 Respiratory Rate 16 16 Blood Pressure 144/55 H 134/108 H Pulse Oximetry 100 96 Oxygen Delivery Method Room Air Room Air BMI result Body Mass Index 34.4 Vital signs have been reviewed and appear to be correct. Blood pressure elevated. Heart rate normal. Respiratory rate normal. Temperature normal. Oxygen saturation normal. Appearance: Alert. Oriented X3. No acute distress. Head: Normal external exam. Normocephalic. Atraumatic. No Lou signs noted. No raccoon eyes noted Eyes: PERRLA. EOMI. Conjunctiva and sclera normal. Eyelids normal. ENT: TM's Normal. Pharynx normal. Uvula midline. Moist mucous membranes. No trismus noted. No drooling noted. No muffled voice noted. Neck: Normal inspection. Neck supple. FROM. No adenopathy. Thyroid Normal. No meningeal signs. No neck mass noted. CVS: Normal heart rate and rhythm. Heart sound normal. No murmurs noted. Pulses normal throughout. Respiratory: No respiratory distress. Painless inspiration. Breath sounds normal. No wheezes/rales/rhonchi noted. Chest nontender. No accessory muscle usage noted or decreased air movement noted. Abdomen: Diffuse abdominal tenderness, more tender to the suprapubic area, with rebound tenderness and voluntary guarding, Bowel sounds normal in all 4 quadrants. No distention noted. No organomegaly noted. No visible injury noted. Back: No CVA tenderness. Full range of motion noted. Skin: Skin warm and dry. Normal skin color. Normal skin turgor. No rashes/lesions/lacerations noted. Extremities: No lower extremity edema. Extremities exhibit normal range of motion. Extremities nontender. Neuro: Oriented X 3. Cranial nerve exam: II-XII are grossly intact No motor deficit. No sensory deficit. Reflexes normal. Course Course Course Narrative: This is a Rapid Medical Examination (RME) performed by Emerson Silva PA-C in triage. Full HPI, ROS, assessment and treatment plan per primary provider in the Main ED. 63 yo female here w/ abd pain x1 week and constipation (last BM 2 days ago). diagnosed with kidney stone a few days ago in [facility] however was also found to have intussusception on CT scan. she was discharged without intervention and told follow up in our ED when she returned home from vacation. + abd is soft, ND, ttp of lower abdomen without rebound or guarding. hypoactive bs. Plan: labs, CT w/ oral con Reevaluation(s) Reevaluation #1: Unable to obtain patient's records from [facility], patient feels better after received narcotic in the emergency department, CT is consistent with 4 mm distal right ureter stone. Patient will be discharged to follow-up with Dr. Lewis, discharge on oxycodone/Flomax/prednisone. Concern of intussusception was ruled out with normal labs and normal CT abdomen pelvis with p.o./IV contrast. Time: 01:57 Medical Decision Making Differential Diagnosis Differential Diagnoses: The differential diagnosis associated with the presentation includes (Ureteric stone, colitis, diverticulitis, intussusception, otitis, acute cholecystitis, UTI, pyelonephritis electrolyte derangement severe anemia) Admission/Observation Consideration of admission/observation: Escalation of care including admission/observation considered Lab Data MDM Lab Attestation statement: I reviewed the patient's lab results. 02/29/24 13:20 02/29/24 13:20 Labs: Lab Results 02/29/24 02/29/24 Range/Units 13:20 17:26 WBC 5.2 (4.8-10.8) X10*3/uL RBC 4.32 (4.20-5.50) X10*6/uL Hgb 13.0 (12.0-16.0) g/dl Hct 39.2 (37.0-47.0) % MCV 90.7 (80.0-98.0) fL MCH 30.1 (27.0-33.0) pg MCHC 33.2 (31.0-35.0) g/dl RDW 13.4 (11.0-16.0) % Plt Count 257 (160-400) X10*3/uL MPV 8.3 L (9.4-12.3) fL Immature Gran % (Auto) 0.4 (0.0-0.4) % Neut % (Auto) 67.9 (45-73) % Lymph % (Auto) 20.3 (20-40) % [place]racken % (Auto) 7.5 (2-11) % Eos % (Auto) 3.5 (0-4) % Baso % (Auto) 0.4 (0-2) % Lymph # (Auto) 1.1 L (1.2-4.9) X10*3/uL [place] # (Auto) 0.4 (0.1-1.2) X10*3/uL Eos # (Auto) 0.2 (0.0-0.4) X10*3/uL Baso # (Auto) 0.0 (0.0-0.2) X10*3/uL Abs Immat Gran (auto) 0.02 (0.00-0.03) X10*3/uL Absolute Neuts (auto) 3.5 (2.0-8.3) x10*3/uL Absolute Nucleated RBC 0.000 (0.0-0.012) X10*3/uL Nucleated RBC % (auto) 0.0 (0.0-0.2) /100WBC Sodium 139 (135-145) mmol/L Potassium 4.4 (3.3-5.1) mmol/L Chloride 104 (96-108) mmol/L Carbon Dioxide 27 (22-29) mmol/L Anion Gap 12 (12-20) BUN 19 H (9-16) mg/dL Creatinine 0.89 (0.5-1.4) mg/dL Estim Creat Clear Calc 83.7 Estimated GFR > 60 Random Glucose 114 (60-115) mg/dL Calcium 9.8 (8.4-10.2) mg/dL Magnesium 2.4 (1.6-2.6) mg/dL Total Bilirubin 0.3 (0.0-1.0) mg/dL AST 14 (5-31) U/L ALT 22 (0-31) U/L Alkaline Phosphatase 90 (39-117) U/L Total Protein 7.2 (6.5-8.0) g/dL Albumin 4.0 (3.5-5.0) g/dL Lipase 34 (8-78) U/L Urine Color Yellow Urine Appearance Clear Urine pH 7.0 (5.0-9.0) Ur Specific [place] 1.010 (1.005-1.025) Urine Protein Negative (Neg-Trace) mg/dL Urine Glucose (UA) Negative (Negative) mg/dL Urine Ketones Negative (Negative) mg/dL Urine Blood Negative (Negative) Urine Nitrite Negative (Negative) Ur Leukocyte Esterase Trace H (Negative) Urine RBC 0-2 (0-2) /HPF Urine WBC 0-5 (0-5) /HPF Ur Squamous Epith Cells 0-2 (0-2) /HPF Urine Bacteria None Seen (None Seen) Hyaline Casts 0-2 (0-2) /LPF Independent Interpretation I performed an independent interpretation of an: CT Scan (Abdomen pelvis:1. 4 mm calcified stone in the distal right ureter with minimal right hydronephrosis. 2. Punctate calcification in the mid left ureter without significant proximal hydronephrosis or hydroureter. 3. Left adnexal cyst measuring 5.9 cm. Findings are concerning for low-grade cystic ) Radiology Impression Discussion of test interpretation with radiology: I have reviewed the radiologist's reading. Medications Administered Discontinued Medications Generic Name Dose Route Start Last Admin Trade Name Freq PRN Reason Stop Dose Admin Diatrizoate Meglum/Diatrizoate Sod 30 ml 02/29/24 16:54 02/29/24 16:54 Diatrizoate Meglumine, Sodium 30 Ml Solution PO 02/29/24 16:55 30 ml ONCE ONE Administration Iohexol 100 ml 02/29/24 18:23 02/29/24 18:23 Iohexol 350 Mg/Ml 100 Ml Infus..Btl IV 02/29/24 18:24 85 ml ONCE ONE Administration Oxycodone HCl 5 mg 02/29/24 22:27 02/29/24 22:32 Oxycodone Hcl Immed Release 5 Mg Tablet PO 02/29/24 22:28 Not Given ONCE ONE Discharge Plan Discharge Clinical Impression: Calculus of kidney, Renal colic Patient Disposition: Home, Self-Care Instructions: Renal Colic (ED) Prescriptions: New oxycodone 5 mg tablet 5 mg PO Q8H PRN (Reason: pain) Qty: 10 0RF Rx Instructions: Partial Fill upon patient request. tamsulosin [Flomax] 0.4 mg capsule 0.4 mg PO DAILY Qty: 7 0RF prednisone 20 mg tablet 20 mg PO BID Qty: 10 0RF No Action (DME) blood-glucose meter [FreeStyle Lite Meter] Kit See Rx Instructions .ROUTE .MEDSUPPLY Qty: 1 0RF Rx Instructions: As directed (DME) Shower Chair Misc See Rx Instructions .ROUTE .MEDSUPPLY Qty: 1 0RF Rx Instructions: daily shower use flu vacc [id number](65yr up)-PF 240 mcg/0.7 mL syringe 0.7 ml IM ONCE 99 Days Qty: 0.7 0RF FreeStyle Lite Strips Strip 1 strip miscellaneous DAILY Qty: 100 6RF lancets [FreeStyle Lancets] 28 gauge misc 1 gauge topical DAILY 30 Days Qty: 100 5RF ascorbic acid (vitamin C) 500 mg capsule See Rx Instructions PO .once a day 90 Days Qty: 90 2RF Rx Instructions: PO .once a day; (DME) OneTouch Ultra Test Strip See Rx Instructions .Route Qty: 100 0RF Rx Instructions: TID testing (DME) blood-glucose meter [OneTouch Ultra2 Meter] Mis See Rx Instructions .Route Qty: 1 0RF Rx Instructions: TID testing (DME) lancets [OneTouch UltraSoft 2 Lancet] 30 gauge misc See Rx Instructions .Route Qty: 100 0RF Rx Instructions: TID testing metformin 500 mg tablet 1,000 mg PO BID lisinopril 5 mg tablet 5 mg PO DAILY Qty: 90 1RF atorvastatin 10 mg tablet 10 mg PO DAILY 90 Days Qty: 90 1RF docusate sodium 100 mg capsule 100 mg PO DAILY PRN (Reason: constipation) 90 Days Qty: 90 1RF trazodone 150 mg tablet 150 mg PO BEDTIME PRN (Reason: insomnia) 90 Days Qty: 90 1RF diclofenac sodium [Voltaren Arthritis Pain] 1 % gel 4 g topical QID Qty: 100 0RF Rx Instructions: apply to single knee, ankle, foot; for foot includes sole/toes/top of foot Mounjaro 2.5 mg/0.5 mL pen injector 5 mg subcut QWEEK Referrals: Boy Lewis MD [Physician] - Interventions: ED Discharge Assessment Last Done: 02/29/24 22:33 Discharge Date/Time: 02/29/24 22:34 Print Language: Portuguese
[2024-02-29 13:31] LABS: MANUAL DIFF FLAG NO
[2024-02-29 13:36] LABS: Basophils Percent Auto 0.4 % (0-2); Eosinophils Absolute Auto 0.2 X10*3/uL (0.0-0.4); Eosinophils Percent Auto 3.5 % (0-4); Hematocrit 39.2 % (37.0-47.0); Imm Gran Abs Auto 0.02 X10*3/uL (0.00-0.03); Imm Gran Pct Auto 0.4 % (0.0-0.4); Lymphocytes Absolute Auto 1.1 X10*3/uL (1.2-4.9); Lymphocytes Percent Auto 20.3 % (20-40); Mean Corpuscular HGB Conc 33.2 g/dl (31.0-35.0); Mean Corpuscular Hemoglobin 30.1 pg (27.0-33.0); Mean Corpuscular Volume 90.7 fL (80.0-98.0); Mean Platelet Volume 8.3 fL (9.4-12.3); Monocytes Absolute Auto 0.4 X10*3/uL (0.1-1.2); Monocytes Percent Auto 7.5 % (2-11); Neutrophils Absolute Auto 3.5 x10*3/uL (2.0-8.3); Neutrophils Percent Auto 67.9 % (45-73); Platelet Count 257 X10*3/uL (160-400); Red Blood Count 4.32 X10*6/uL (4.20-5.50); Red Cell Distribution Width 13.4 % (11.0-16.0); White Blood Count 5.2 X10*3/uL (4.8-10.8)
[2024-02-29 13:47] LABS: Alanine Aminotransferase 22 U/L (0-31); Alkaline Phosphatase 90 U/L (39-117); Anion Gap 12 (12-20); Aspartate Amino Transferase 14 U/L (5-31); Bilirubin Total 0.3 mg/dL (0.0-1.0); Blood Urea Nitrogen 19 mg/dL (9-16); Calcium 9.8 mg/dL (8.4-10.2); Carbon Dioxide 27 mmol/L (22-29); Chloride 104 mmol/L (96-108); Creatinine Clr Calc Pharmacy 83.7; Estimated Glomerular Filt Rate > 60; Glucose Random 114 mg/dL (60-115); Lipase 34 U/L (8-78); Magnesium 2.4 mg/dL (1.6-2.6); Potassium 4.4 mmol/L (3.3-5.1); Sodium 139 mmol/L (135-145); Total Protein 7.2 g/dL (6.5-8.0)
[2024-02-29 16:31] VITALS: BP 130/73; PULSE 60; RESP 16; TEMP 36.6; O2SAT 100
[2024-02-29] MEDS: Diatrizoate Meglumine, Sodium 30 ML SOLUTION PO (16:54)
[2024-02-29 17:49] LABS: Appearance Urine Clear; Color Urine Yellow; Glucose Urine UA Negative (Negative); Leukocyte Esterase Urine Trace (Negative); Nitrite Urine Negative (Negative); UMIC TRIGGER UACC YES; Urine Blood Negative (Negative); Urine Ketones Negative (Negative); Urine Protein Negative (Neg-Trace)
[2024-02-29 18:02] LABS: Bacteria Urine None Seen (None Seen); Hyaline Casts Urine 0-2 /LPF (0-2); RBC Urine 0-2 /HPF (0-2); Squamous Epithelial Cell Urine 0-2 /HPF (0-2); WBC Urine 0-5 /HPF (0-5)
[2024-02-29 18:07] VITALS: BP 124/62; PULSE 58; RESP 18; TEMP 36.9; O2SAT 97
[2024-02-29] MEDS: iohexoL 350 MG/ML 100 ML INFUS..BTL IV (18:23)
[2024-02-29 19:37] VITALS: BP 144/55; PULSE 76; RESP 16; TEMP 36.9; O2SAT 100
[2024-02-29 22:33] VITALS: BP 134/108; PULSE 68; RESP 16; TEMP 36.6; O2SAT 96
== END 2024-02-29 22:34 | disposition home or self-care (01) ==
PROVIDERS: Physician Assistant Medical; Emergency Provider Emergency Medicine; PCP Nurse Practitioner Family
DX: N13.2 Hydronephrosis with renal and ureteral calculous obstruction (principal); N23 Unspecified renal colic; Z79.84 Long term (current) use of oral hypoglycemic drugs; Z79.899 Other long term (current) drug therapy; Z79.02 Long term (current) use of antithrombotics/antiplatelets
CPT/HCPCS: 36415; 74177; 80053; 81001; 83690; 83735; 85025; 99284; Q9967

== ENCOUNTER 2024-05-24 10:00 | Outpatient (AMB) | payer OTHER, SELFPAY ==
--- NOTE | 2024-05-24 10:04 | MHC.OFFWIV ---
Intake Vital Signs 05/24/24 10:07 Height 5 ft 9 in BP 130/76 Blood Pressure Location Lt brachial Position Sitting Pulse 67 Pulse Source Pulse Oximeter Pulse Oximetry (%) 98 Oxygen Delivery Method Room Air Intake Visit Reasons: EP-?uti Intake Note: pt is here for possible uti, since yesterday Patient Tobacco Use Status: Never used Tobacco Allergies penicillin V Allergy (Unknown, Verified 05/24/24 10:07) swelling Penicillins [PENICILLINS] Allergy (Unknown, Verified 05/24/24 10:07) SWELLING From NOVOCAIN Allergy (Unknown, Uncoded 02/29/24 13:05) SWELLING Novocain Allergy (Unknown, Uncoded 02/29/24 13:05) swelling Do you need a note to return to daycare/school/sports/work: No HPI HPI Comments History of Present Illness Details 63 y/o female patient who presents to the walk in clinic with c/o urinary symptoms since yesterday. Reports frequent urination, but denies dysuria or urgency. She does also report diarrhea for few days now. She ate at a [employer] restaurant prior to symptoms, thinks she might have food poisoning. Denies fevers, chills or Nausea or vomiting. [facility] Medical History Obstruction of ureteropelvic junction (UPJ) due to stone Pyelonephritis Surgical History Hx of left knee surgery Social History Housing: House Patient Tobacco Use Status: Never used Tobacco e-Cigarette/Vaping Use: Never Used Second Hand Smoke Exposure: No Current occupational status: disabled Cognitive needs: No Hearing needs: No Vision needs: No Review of Systems Const All systems reviewed & are unremarkable except as noted in HPI and below Physical Exam Vital Signs: Last Vital Signs Pulse 67 05/24/24 10:07 BP 130/76 05/24/24 10:07 Pulse Ox 98 05/24/24 10:07 Oxygen Delivery Method Room Air 05/24/24 10:07 Const General: cooperative and no acute distress Nutritional Appearance: overweight Orientation/consciousness: patient oriented x3 Resp Effort & Inspection: normal respiratory effort Auscultation: clear to auscultation bilaterally Cardio Heart sounds: S1 normal heart sound present and S2 normal heart sound present GI Inspection: Yes obesity Palpation (GI): Soft to palpation, not firm, Tenderness to palpation present (GI) (Generalized tenderness. ), no guarding, not rigid and No hepatosplenomegaly present Auscultation: Hyperactive bowel sounds present Rectal Exam - Female: deferred General: Yes no CVA tenderness Back/Spine/Pelvis Back: no CVA tenderness Neuro General: patient oriented x3 Psych Speech and movement: Normal speech and movement present Results AMB Urinalysis, Automated UA Leukoctes 0 Roma/uL Last Edit by Avery Tobias CMA on 05/24/24 10:25 UA Nitrite Negative Last Edit by Avery Tobias CMA on 05/24/24 10:25 UA Urobilinogen 0.2 mg/dL Last Edit by Avery Tobias CMA on 05/24/24 10:25 UA Protein 0 mg/dL Last Edit by Avery Tobias CMA on 05/24/24 10:25 UA pH 6.0 Last Edit by Avery Tobias CMA on 05/24/24 10:25 UA Blood 0 Dl/uL Last Edit by Avery Tobias CMA on 05/24/24 10:25 UA Specific [place] 1.030 Last Edit by Avery Tobias CMA on 05/24/24 10:25 UA Ketone Negative Last Edit by Avery Tobias CMA on 05/24/24 10:25 UA Bilirubin 0 mg/dL Last Edit by Avery Tobias CMA on 05/24/24 10:25 UA Glucose 0 mg/dL Last Edit by Avery Tobias CMA on 05/24/24 10:25 Assessment & Plan Assessment & Plan (1) Urinary tract infection symptoms: Code(s): R39.9 - Unspecified symptoms and signs involving the genitourinary system Plan: U/A negative RTC if symptoms worse. (2) Gastroenteritis: Code(s): K52.9 - Noninfective gastroenteritis and colitis, unspecified Plan: [place] diet Hydrate well Ordered Reglan and Imodium. Orders: Orders AMB Urinalysis Automated Today Z13.9 - Encounter for screening, unspecified Medications: New metoclopramide HCl (Reglan) 5 mg PO Q6H 30 tabs 0RF K52.9 - Noninfective gastroenteritis and colitis, unspecified loperamide (Imodium A-D) 2 mg PO Q6H PRN 20 caps 0RF loose stool K52.9 - Noninfective gastroenteritis and colitis, unspecified Coding Level of Care Code Est Pt Level 4 (65930) Diagnoses Urinary tract infection symptoms R39.9 Gastroenteritis K52.9 Time Spent (min) 20
[2024-05-24 10:07] VITALS: BP 130/76; PULSE 67; O2SAT 98
== END 2024-05-24 10:58 | disposition home or self-care (01) ==
PROVIDERS: PCP Nurse Practitioner Family; Visit Provider Nurse Practitioner Family
DX: R39.9 Unspecified symptoms and signs involving the genitourinary system (principal); K52.9 Noninfective gastroenteritis and colitis, unspecified; Z13.9 Encounter for screening, unspecified

== ENCOUNTER → 2024-05-24 10:00 | Outpatient (BNVA) | payer OTHER, SELFPAY | PROVIDERS: PCP Nurse Practitioner Family; Visit Provider Nurse Practitioner Family | DX: R39.9 Unspecified symptoms and signs involving the genitourinary system (principal); K52.9 Noninfective gastroenteritis and colitis, unspecified | CPT/HCPCS: 81003; 99212 ==

== ENCOUNTER 2025-01-23 12:19 | Outpatient (AMB) | payer OTHER, SELFPAY ==
[2025-01-23 12:37] VITALS: BP 116/58; PULSE 80; TEMP 36.7; O2SAT 99; BMI 36.2
--- NOTE | 2025-01-23 12:37 | AM.OFFWIN_ITS ---
Intake Vital Signs 01/23/25 12:37 Height 5 ft 9 in Weight 245 lb 2 oz BMI 36.2 BP 116/58 L Blood Pressure Location Lt brachial Position Sitting Pulse 80 Pulse Source Pulse Oximeter Temp 98.1 F Temp Source Oral Pulse Oximetry (%) 99 Oxygen Delivery Method Room Air Intake Visit Reasons: EP Lump side of LT breast, painful Patient Tobacco Use Status: Never used Tobacco Is last menstrual period known: No Post menopausal: Yes Patient : No Allergies penicillin V Allergy (Unknown, Verified 05/24/24 10:07) swelling Penicillins (PENICILLINS) Allergy (Unknown, Verified 05/24/24 10:07) SWELLING From NOVOCAIN Allergy (Unknown, Uncoded 02/29/24 13:05) SWELLING Novocain Allergy (Unknown, Uncoded 02/29/24 13:05) swelling Do you need a note to return to daycare/school/sports/work: No HPI EP Lump side of LT breast, painful HPI Details Patient presents to the office today with report of a lump and ? infection on the left lateral side of her breast near her axilla. She said that this happened several months ago at the same location, and she was able to put some antibiotic ointment on it, and later popped what was seemingly a small pimple. This resolved at the time. She states it has now recurred, starting about 2 weeks ago, and it has been becoming increasingly tender and red. She has applied some topical antibiotic ointment without relief. She denies any fevers/chills. Denies any breast pain or nipple changes/discharge. ON LICENSE OF [facility] Medical History Obstruction of ureteropelvic junction (UPJ) due to stone Pyelonephritis Surgical History Hx of left knee surgery Social History Housing: House Patient Tobacco Use Status: Never used Tobacco e-Cigarette/Vaping Use: Never Used Second Hand Smoke Exposure: No Patient : No Current occupational status: disabled Cognitive needs: No Hearing needs: No Vision needs: No Review of Systems Const All systems reviewed & are unremarkable except as noted in HPI and below Physical Exam Vital Signs: Last Vital Signs Temp 98.1 F 01/23/25 12:37 Pulse 80 01/23/25 12:37 BP 116/58 L 01/23/25 12:37 Pulse Ox 99 01/23/25 12:37 Oxygen Delivery Method Room Air 01/23/25 12:37 BMI result Body Mass Index 36.2 Const General: cooperative, healthy appearing, comfortable and no acute distress Resp Effort & Inspection: normal respiratory effort Auscultation: clear to auscultation bilaterally Cardio Rate: regular rate Rhythm: regular rhythm Skin Other: left mid-axillary line, lateral to left breast, erythematous/indurated and mildly tender area, approx [id number]. Extrem General: Yes capillary refill normal and Yes no clubbing, cyanosis or edema Psych Appearance: grossly normal Mental Status: mental status grossly normal Speech and movement: Normal speech and movement present Assessment & Plan Assessment & Plan (1) Infection of left breast: Code(s): N61.0 - Mastitis without abscess Plan: I will start patient on Doxy for this infection - area is indurated and I discussed with patient that it is not advisable to try to drain area at this time. I advised some warm compresses to area, and Tylenol/Motrin for discomfort. We reviewed use of abx. If she does not improve with treatment, or if symptoms worsen, area becomes larger, or if she develops any associated symptoms such as fever, chills, or fatigue, she should return for care or go to the emergency department for evaluation. Patient verbalizes understanding and agrees to plan. Also refilled patient's Dicyclomine per her request as she has run out and this is helpful for her IBS. Medications: New dicyclomine 20 mg PO TID PRN 60 tabs 0RF pain doxycycline hyclate 100 mg PO BID 14 caps 0RF 7 days N61.0 - Mastitis without abscess Coding Level of Care Code Est Pt Level 4 (21864) Diagnoses Infection of left breast N61.0
--- OUTSIDE RECORDS SUMMARY | 2025-01-23 12:49 | XMS_ITS | Continuity of Care Document ---
Author Organization [facility] Address [address] [place] [address] Phone [phone] Care Team Providers Care Full Time Babysitter Name Role Phone Duke Rey Care Team Information Digital Asset Manager [phone] Problems Active Problems Provider Date Type 2 diabetes mellitus Rojelio Mondragon M.D. Onset: 02/16/2023 Social History Type Date Description Comments Sex Female Sex Unknown Tobacco Use Start: Unknown Never Smoked Cigarettes Smoking Status Reviewed: 02/16/23 Never Smoked Cigaret angelia ETOH Use Occasionally consumes alcoho l Allergies and adverse reactions Active Allergies Criticality Reaction Severity Comments Date Penicillins Unable to assess criticality 02/16/2023 Novocain Unable to assess criticality 02/16/2023 Farxiga Unable to assess criticality Diarrhea 07/26/2024 Medications Active Medications SIG Qnty Indications Order ing Provider Date Mounjaro7.5mg/0.5ML Solution Auto-Inject Inject 5 MG Subcutaneously Once A Week 2ml E11.9 Rojelio Mondragon M.D. 07/26/2024 Docusate [id number] Capsules Take 1 Capsule By Mouth Daily as Needed For Constipation For 90 Days Duke Rey Accu-Chek Softclix LancetsMisc Use 1 Device By Does Not Apply Route Daily Unknown Accu-Chek Cristina PlusStrips Use To Check Blood Sugar Daily DX Code E11.69 Unknown [id number] Tablets Take 1 Tablet By Mouth Every Day Duke Rey Atorvastatin [id number] Tablets 1 by mouth every day 90tabs Munira Rey Trazodone [id number] Tablets take 1 tablet by mouth everyday at bedtime Duke Rey History Medications Ocihlnq1tb Tablets 1 tablet by mouth every day 90tabs Rojelio Mondragon M.D. 03/13/2024 - 07/26/2024 Mounjaro2.5mg/0.5 ML Solution Pen-Inject Inject 2.5MG Subcutaneously Once A Week as Directed For 4 Weeks DX: E11.9 2ml E11.9 Rojelio Mondragon M.D. 02/26/2024 - 03/13/2024 Vital Signs Date Vital Result Comment 07/26/2024 2:34pm BP Systolic 110 mmHg BP Diastolic 74 mmHg Heart Rate 72 /min Height 69.5 inches 5'9.50 Weight 241.25 lb BMI (Body Mass Index) 35.1 kg/m2 Results Test Acquired Date Facility Test Result H/L Range N ote Glucose Fingerstick 07/26/2024 Inhouse Glucose Fingerstick 120 Hemoglobin A1c 07/26/2024 Inhouse Hemoglobin A1c 5.9% Glucose Fingerstick 03/13/2024 Inhouse Glucose Fingerstick 110 Hemoglobin A1c 03/13/2024 Inhouse Hemoglobin A1c 6.3 % Hemoglobin A1c 11/07/2023 Inhouse Hemoglobin A1c 5.8% Glucose Fingerstick 11/07/2023 Inhouse Glucose Fingerstick 120 Hemoglobin A1c 06/13/2023 Inhouse Hemoglobin A1c 6.1% Glucose Fingerstick 06/13/2023 Inhouse Glucose Fingerstick 144 [place] C 02/16/2023 [facility] Som[place] C 158 NG/ML 1 Z Score 1.0 2 Hemoglobin A1c 02/16/2023 Inhouse Hemoglobin A1c 6.8% Glucose Fingerstick 02/16/2023 Inhouse Glucose Fingerstick 137 1 Reference range: 57 to 202 2 Reference range: NEG 2.0 to +2.0 Unit: S.D. Test performed at [address] [address] Procedures Date Code Description Status 02/07/2024 NSHOWOFF No Show Office Visit Complet ed Medical Devices Description No Information Available Encounters Type Date Location Provider Dx Diagnosis Office Visit 07/26/2024 2:45p Main Office Rojelio Mondragon M.D. E11.9 Type 2 diabetes mellitus without complications Assessments Date Code Description Provider 07/26/2024 E11.9 Type 2 diabetes mellitus without complications Rojelio Mondragon M.D. Plan of Treatment 07/26/2024 - Rojelio Mondragon M.D.* E11.9 Type 2 diabetes mellitus without complications* New Medication:* Mounjaro 7.5 mg/0.5ML Functional Status Description No Information Available Mental Status Description No Information Available Referrals Description No Information Available
--- OUTSIDE RECORDS SUMMARY | 2025-01-23 12:49 | XMS_ITS | Clinical Summary ---
Author Organization [facility] [[email or web address]] Address [address] [place] [address] Care Team Providers Care Manager Billing Name Role Phone Unavailable Primary Care Provider Unavailabl e Surgical History Surgery Date Site/Laterality Comments OTHER SURGICAL HISTORY PROCEDURE: DENIES PREVIOUS SURGERY Family History Relation Name Status Comments Brother Alive Father Mother Social History Tobacco Use Types Packs/Day Years Used Date Smoking Tobacco: Never Alcohol Use Standard Drinks/Week Comments No 0 (1 standard drink = 0.6 oz pur e alcohol) Comments Unknown Sex and Gender Information Value Date Recorded Sex Assigned at Not on file Legal Sex Female 4:20 AM EST Gender Identity Not on file Sexual Orientation Not on file Obstetrics History Last Filed Vital Signs Vital Sign Reading Time Taken Comments Blood Pressure 120/79 01/02/2023 1:40 PM EDT Aut o Cuff Pulse 84 01/02/2023 1:40 PM EDT Temperature - - Respiratory Rate - - Oxygen Saturation - - Inhaled Oxygen Concentration - - Weight 121 kg (266 lb 9.6 oz) 01/02/2023 1:40 PM EDT Height 176.5 cm (5' 9.5 ) 01/02/2023 1:40 PM EDT Body Mass Index 38.81 01/02/2023 1:40 PM EDT Plan of Treatment Health Maintenance Due Date Last Done Comments Breast Cancer Screening 1960 Diabetes: Annual GFR (Glomer ular Filtration Rate) 1960 Diabetes: Annual Foot Exam 1970 Diabetes: Annual Retina Eye Exam 1970 Cervical Cancer Screening: P ap Smear 1981 Pneumococcal Vaccine: 50+ Ye ars (1 of 1 - PCV) 2010 Zoster Vaccines (1 of 2) 2010 DTaP,Tdap,and Td Vaccines (2 - Td or Tdap) 07/10/2016 07/10/2006 Cholesterol Screening (Lipid Panel) 06/12/2022 Colorectal Cancer Screening: Colonoscopy 06/12/2022 Depression Screening 06/12/2022 HIV Screening 06/12/2022 Hepatitis C Screening 06/12/2022 Social Influencers of Health Screening 06/12/2022 Hypertension/CHF/CAD Annual BMP Blood Test 08/08/2023 Diabetes: Annual Urine Albumin-Creatinine Ratio (uACR) 08/24/2023 Diabetes: Blood Sugar Contro l Test (HGBA1C) 08/24/2023 COVID-19 Vaccine ( - 2023-2 5 season) 2024 Influenza Vaccine (#1) 2025 03/25/2009 RSV Immunization Adult Patie nts (1 - 1-dose 75+ series) 10/31/2035 HIB Vaccines Aged Out No longer eligi ble based on patient's age to complete this topic HPV Vaccines Aged Out No longer eligi ble based on patient's age to complete this topic Hepatitis A Vaccines Aged Out No long er eligible based on patient's age to complete this topic Hepatitis B Vaccines Aged Out No long er eligible based on patient's age to complete this topic IPV Vaccines Aged Out No longer eligi ble based on patient's age to complete this topic MMR Vaccines Aged Out No longer eligi ble based on patient's age to complete this topic Meningococcal ACWY Vaccine Aged Out N o longer eligible based on patient's age to complete this topic Meningococcal B Vaccine Aged Out No l onger eligible based on patient's age to complete this topic RSV Immunization Patients Un krystyna 20 months Aged Out No longer eligible b ased on patient's age to complete this topic Varicella Vaccines Aged Out No longer eligible based on patient's age to complete this topic Advance Directives Documents on File Type Date Recorded Patient Director Underwriter Sales Expl anation Health Care Decision (hx) 07/13/2021 AD WANG DIRECTIVE Health Care Decision (hx) 07/13/2021 AD WANG DIRECTIVE Health Care Decision (hx) 07/13/2021 AD WANG DIRECTIVE Health Care Decision (hx) 07/13/2021 AD WANG DIRECTIVE Health Care Decision (hx) 07/13/2021 AD WANG DIRECTIVE
== END 2025-01-23 13:39 | disposition home or self-care (01) ==
PROVIDERS: PCP Nurse Practitioner Family; Visit Provider Nurse Practitioner Family
DX: N61.0 Mastitis without abscess (principal)

== ENCOUNTER → 2025-01-23 12:19 | Outpatient (BNVA) | payer OTHER, SELFPAY | PROVIDERS: PCP Nurse Practitioner Family; Visit Provider Nurse Practitioner Family | DX: N61.0 Mastitis without abscess (principal) | CPT/HCPCS: 99212 ==